=== PATIENT | female | born 1985 | race Caucasian/White ===

== ENCOUNTER 2016-06-20 21:32 | Emergency (ER) | payer MEDICAID ==
[~2016-06-20] VITALS: Ht 165.1 cm; Wt 58.1 kg
[2016-06-20 21:35] VITALS: BP_SYST 120
[2016-06-20] MEDS ORDERED: SULFAMETHOXAZOLE/TRIMETHOPR DS 1 TABLET PO ONE (23:30)
[2016-06-20 23:58] VITALS: BP_SYST 126
== END 2016-06-20 23:58 | disposition home or self-care (01) ==
LOC: SED 21:32
DX: J02.9 Acute pharyngitis, unspecified (principal); J01.90 Acute sinusitis, unspecified; J45.909 Unspecified asthma, uncomplicated; Z88.6 Allergy status to analgesic agent
CPT/HCPCS: 81025; 99283

== ENCOUNTER 2017-11-21 09:19 | Emergency (ER) | payer MEDICAID ==
[~2017-11-21] VITALS: Ht 154.9 cm; Wt 63.5 kg
[2017-11-21 09:20] VITALS: BP_SYST 117
[2017-11-21 09:46] LABS: BASOPHILS % (AUTO) 0.8 % (0.0-2.0); EOSINOPHILS # (AUTO) 0.1 K/uL (0.0-0.4); HEMATOCRIT 41.8 % (36-48); HEMOGLOBIN 13.4 g/dL (12.0-16.0); LYMPHOCYTES # (AUTO) 3.5 K/uL (1.0-5.5); LYMPHOCYTES % (AUTO) 56.4 % (20.5-51.5); MEAN CORPUSCULAR HEMOGLOBIN 28 pg (27-31); MEAN CORPUSCULAR HGB CONC 32 % (32-36); MEAN CORPUSCULAR VOLUME 88 fL (79.0-98.0); MONOCYTES # (AUTO) 0.4 K/uL (0.0-1.0); MONOCYTES % (AUTO) 6.1 % (1.7-9.3); NEUTROPHILS # (AUTO) 2.2 K/uL (1.8-7.7); NEUTROPHILS % (AUTO) 35.7 % (40.0-70.0); PLATELET COUNT (AUTO) 315 K/uL (130-430); RED BLOOD CELL COUNT(AUTO) 4.77 MIL/uL (4.2-6.2); RED CELL DISTRIBUTION WIDTH 12.5 % (9.0-15.0); WHITE BLOOD COUNT (AUTO) 6.2 K/uL (4.8-10.8)
[2017-11-21 10:05] LABS: PROTHROMBIN TIME 10.2 SECS (9.5-12.5)
[2017-11-21 10:13] LABS: ANION GAP 8 (5-15); CALCIUM 9.1 mg/dL (8.4-11.0); CHLORIDE 103 mmol/L (98-107); CREATININE 0.66 mg/dL (0.55-1.30); GFR AFRICAN AMERICAN 135 mL/min (>90); GLUCOSE 77 mg/dL (70-99); SODIUM SERUM 137 mmol/L (136-145); UREA NITROGEN, BLOOD 8 mg/dL (8-21)
[2017-11-21 10:26] LABS: ALANINE AMINOTRANSFERASE 24 U/L (12-78); ALBUMIN 3.7 g/dL (3.4-4.8); ASPARTATE AMINOTRANSFERASE 18 U/L (10-37); TOTAL BILIRUBIN 0.9 mg/dL (0.0-1.0); URIC ACID 3.2 mg/dL (2.4-7.0)
[2017-11-21 11:11] VITALS: BP_SYST 117
[2017-11-21 15:03] LABS: C-REACTIVE PROTEIN QUANT < 0.2 mg/dL (0-0.5)
== END 2017-11-21 11:07 | disposition home or self-care (01) ==
LOC: SED 09:19
DX: M13.862 Other specified arthritis, left knee (principal); M13.861 Other specified arthritis, right knee; J45.909 Unspecified asthma, uncomplicated; Z88.6 Allergy status to analgesic agent
CPT/HCPCS: 36415; 73560-TC; 80053; 81025; 84550-TC; 85025; 85610-TC; 85730-TC; 86140; 99285

== ENCOUNTER 2018-01-16 20:34 | Emergency (ER) | payer MEDICAID ==
[~2018-01-16] VITALS: Ht 165.1 cm; Wt 63.5 kg
[2018-01-16 20:38] VITALS: BP_SYST 152
[2018-01-16] MEDS ORDERED: methylPREDNISolone SOD SUCC/PF 62.5 MG/ML VIAL IM ONE (21:00)
[2018-01-16] MEDS ORDERED: IPRATROPIUM/ALBUTEROL SULFATE 3 ML AMPUL.NEB (DUONEB) INH ONE (21:00)
== END 2018-01-16 21:37 | disposition home or self-care (01) ==
LOC: SED 20:34
DX: J45.901 Unspecified asthma with (acute) exacerbation (principal); F41.9 Anxiety disorder, unspecified; R03.0 Elevated blood-pressure reading, without diagnosis of hypertension; Z88.6 Allergy status to analgesic agent
CPT/HCPCS: 94640; 96372; 99283; J2930

== ENCOUNTER 2018-11-30 09:19 | Emergency (ER) | payer MEDICAID ==
[~2018-11-30] VITALS: Ht 154.9 cm; Wt 59.0 kg
[2018-11-30 09:38] VITALS: BP_SYST 112
--- NOTE | 2018-11-30 09:45 | NUR ---
Patient to ER bed 3 to gown for evaluation. Side rails up. Report given to Tatiana ZARATE.
--- NOTE | 2018-11-30 09:50 | NUR ---
Patient presented to ER with C/O Rash. Patient A&Ox4, afebrile, cap refill <3, skin hives on bilat arms, bilat legs, and trunk. Patient states she has had rash x3 days with increase in itchiness today. patient states she has new dog 3 days ago.
--- NOTE | 2018-11-30 09:52 | NUR ---
ER Dr. Yeung at bedside examining patient.
[2018-11-30] MEDS ORDERED: EPINEPHrine JECT 1 MG/10 ML SYR IM ONE (10:00)
[2018-11-30] MEDS ORDERED: PREDNISONE 20 MG TABLET PO ONE (10:00)
[2018-11-30] MEDS ORDERED: DIPHENHYDRAMINE HCL 50 MG CAPSULE PO ONE (10:00)
[2018-11-30] MEDS ORDERED: EPINEPHrine 1 MG/ML AMP IM ONE (10:00)
[2018-11-30 10:48] LABS: BASOPHILS % (AUTO) 0.4 % (0.0-2.0); EOSINOPHILS # (AUTO) 0.1 K/uL (0.0-0.4); EOSINOPHILS % (AUTO) 0.9 % (0.0-4.0); HEMATOCRIT 45.1 % (36-48); HEMOGLOBIN 15.1 g/dL (12.0-16.0); LYMPHOCYTES # (AUTO) 3.9 K/uL (1.0-5.5); LYMPHOCYTES % (AUTO) 49.6 % (20.5-51.5); MEAN CORPUSCULAR HEMOGLOBIN 30 pg (27-31); MEAN CORPUSCULAR HGB CONC 34 % (32-36); MEAN CORPUSCULAR VOLUME 89 fL (79.0-98.0); MONOCYTES # (AUTO) 0.6 K/uL (0.0-1.0); MONOCYTES % (AUTO) 7.5 % (1.7-9.3); NEUTROPHILS # (AUTO) 3.3 K/uL (1.8-7.7); NEUTROPHILS % (AUTO) 41.6 % (40.0-70.0); PLATELET COUNT (AUTO) 289 K/uL (130-430); RED BLOOD CELL COUNT(AUTO) 5.08 MIL/uL (4.2-6.2); RED CELL DISTRIBUTION WIDTH 13.6 % (9.0-15.0); WHITE BLOOD COUNT (AUTO) 7.9 K/uL (4.8-10.8)
[2018-11-30 10:58] LABS: CREATININE 0.69 mg/dL (0.55-1.30); POTASSIUM 3.5 mmol/L (3.5-5.1)
[2018-11-30 11:03] LABS: PROTHROMBIN TIME 10.4 SECS (9.5-12.5)
[2018-11-30 12:40] VITALS: BP_SYST 114
--- NOTE | 2018-11-30 12:40 | NUR ---
Patient given written and verbal discharge instructions and verbalizes understanding. ER MD discussed with patient the results and treatment provided. Patient in stable condition. ID arm band removed. Rx of Benadryl & epi auto injecter given. Patient educated on pain management and to follow up with PMD. Pain Scale 0/10. Opportunity for questions provided and answered. Medication side effect fact sheet provided.
== END 2018-11-30 12:40 | disposition home or self-care (01) ==
LOC: SED 09:19
DX: L23.9 Allergic contact dermatitis, unspecified cause (principal); J45.909 Unspecified asthma, uncomplicated; Z88.6 Allergy status to analgesic agent
CPT/HCPCS: 36415; 80053; 85025; 85610; 85730; 96372; 99283; J0171; J7512; Q0163

== ENCOUNTER 2019-02-21 00:52 | Emergency (ER) | payer MEDICAID ==
[~2019-02-21] VITALS: Ht 157.5 cm; Wt 59.0 kg
[2019-02-21 01:09] VITALS: BP_SYST 118
--- NOTE | 2019-02-21 01:15 | NUR ---
Patient triaged and placed in waiting room. VSS and patient appears in no acute distress at this time. Awaiting available bed, and MD notified of need for MSE.
--- NOTE | 2019-02-21 02:10 | NUR ---
Pt ambulatory to bed 2 for evaluation
--- NOTE | 2019-02-21 02:44 | NUR ---
Patient was ambulatory to ER bed, c/o left sided abdominal pain x 2 weeks. Pt denies N/V, fever, constipation or diarrhea. Per patient Tylenol has been taken but has not relieved pain. No other injuries/complaints per patient or noted.
--- NOTE | 2019-02-21 02:45 | NUR ---
ER Dr. Devlin at bedside examining patient.
--- NOTE | 2019-02-21 03:11 | NUR ---
Patient went to CT in stable condition.
--- NOTE | 2019-02-21 03:22 | NUR ---
patient returned from CT in stable condition.
[2019-02-21 04:57] VITALS: BP_SYST 114
--- NOTE | 2019-02-21 04:57 | NUR ---
Patient given written and verbal discharge instructions and verbalizes understanding. ER MD discussed with patient the results and treatment provided. Patient in stable condition. Patient wanted to keep ID arm band. Rx of Mineral Oil given. Patient educated on pain management and to follow up with PMD. Pain Scale 0. Opportunity for questions provided and answered. Medication side effect fact sheet provided.
== END 2019-02-21 04:57 | disposition home or self-care (01) ==
LOC: SED 00:52
DX: R10.9 Unspecified abdominal pain (principal); J45.909 Unspecified asthma, uncomplicated
CPT/HCPCS: 99284

== ENCOUNTER 2020-02-19 10:56 | Emergency (ER) | payer MEDICAID ==
[~2020-02-19] VITALS: Ht 154.9 cm; Wt 63.5 kg
[2020-02-19 11:05] VITALS: BP_SYST 125
--- NOTE | 2020-02-19 11:05 | NUR ---
BROUGHT INTO TRIAGE TENT AND TRIAGED. AWAITING AVAILABLE ER ROOM
--- NOTE | 2020-02-19 11:21 | NUR ---
DR GONZALES OUT TO TENT FOR EVALUATION
--- NOTE | 2020-02-19 12:11 | NUR ---
PT SWABBED FOR COVID
--- NOTE | 2020-02-19 12:49 | NUR ---
Patient given written and verbal discharge instructions and verbalizes understanding. ER MD discussed with patient the results and treatment provided. Patient in stable condition. ID arm band removed. Rx of NONE given. Patient educated on pain management and to follow up with PMD. Pain Scale 0/10. Opportunity for questions provided and answered. Medication side effect fact sheet provided.
== END 2020-02-19 12:49 | disposition home or self-care (01) ==
LOC: SED 10:56
DX: B34.9 Viral infection, unspecified (principal); R05 Cough; J02.9 Acute pharyngitis, unspecified; J45.909 Unspecified asthma, uncomplicated; Z20.828 Contact with and (suspected) exposure to other viral communicable diseases
CPT/HCPCS: 99281

== ENCOUNTER 2020-10-24 08:03 | Emergency (ER) | payer MEDICAID, SELFPAY ==
[~2020-10-24] VITALS: Ht 160 cm; Wt 63.5 kg
--- NOTE | 2020-10-24 08:30 | NUR ---
Patient to ER bed 4 to gown for evaluation. Side rails up. .
--- NOTE | 2020-10-24 08:31 | NUR ---
ER at bedside examining patient.
--- NOTE | 2020-10-24 08:35 | NUR ---
PT RECEIVED WOUND CARE AND ROCEPHIN GIVEN.PT TOLERATED WELL.
[2020-10-24] MEDS ORDERED: TRAM50TA PO (08:39)
[2020-10-24] MEDS ORDERED: CEPH500C2 PO (08:39)
[2020-10-24 08:40] VITALS: BP_SYST 134
--- NOTE | 2020-10-24 08:40 | NUR ---
Patient given written and verbal discharge instructions and verbalizes understanding. ER MD discussed with patient the results and treatment provided. Patient in stable condition. ID arm band removed. Rx of CEFALEXIN, TRAMADOL given. Patient educated on pain management and to follow up with PMD. Pain Scale 2. Opportunity for questions provided and answered. Medication side effect fact sheet provided.
[2020-10-24] MEDS ORDERED: cefTRIAXone 1 GM VIAL IM ONE (08:45)
[2020-10-24] MEDS ORDERED: LIDOCAINE 1%, 20 ML MDV 20 ML ONE (08:53)
== END 2020-10-24 08:40 | disposition home or self-care (01) ==
LOC: SED 08:03
DX: L03.012 Cellulitis of left finger (principal); J45.909 Unspecified asthma, uncomplicated; Z88.6 Allergy status to analgesic agent; Z79.899 Other long term (current) drug therapy
CPT/HCPCS: 96372; 99283; J0696; J2001

== ENCOUNTER 2020-11-20 08:05 | Emergency (ER) | payer MEDICAID, SELFPAY ==
[~2020-11-20] VITALS: Ht 154.9 cm; Wt 61.7 kg
[~2020-11-20 08:05] MED LIST: CEPH500C2 PO; TRAM50TA PO
[2020-11-20 08:15] VITALS: BP_SYST 134
[2020-11-20 08:51] LABS: BASOPHILS % (AUTO) 0.4 % (0.0-2.0); EOSINOPHILS # (AUTO) 0.1 K/uL (0.0-0.4); EOSINOPHILS % (AUTO) 0.6 % (0.0-4.0); HEMATOCRIT 41.2 % (36-48); LYMPHOCYTES # (AUTO) 3.6 K/uL (1.0-5.5); LYMPHOCYTES % (AUTO) 41.7 % (20.5-51.5); MEAN CORPUSCULAR HEMOGLOBIN 31 pg (27-31); MEAN CORPUSCULAR HGB CONC 34 % (32-36); MEAN CORPUSCULAR VOLUME 90 fL (79.0-98.0); MONOCYTES # (AUTO) 0.6 K/uL (0.0-1.0); MONOCYTES % (AUTO) 7.6 % (1.7-9.3); NEUTROPHILS # (AUTO) 4.3 K/uL (1.8-7.7); NEUTROPHILS % (AUTO) 49.7 % (40.0-70.0); PLATELET COUNT (AUTO) 267 K/uL (130-430); RED BLOOD CELL COUNT(AUTO) 4.59 MIL/uL (4.2-6.2); RED CELL DISTRIBUTION WIDTH 13.5 % (9.0-15.0); WHITE BLOOD COUNT (AUTO) 8.6 K/uL (4.8-10.8)
[2020-11-20 09:04] LABS: ANION GAP 7 (5-15); CALCIUM 9.2 mg/dL (8.4-11.0); CHLORIDE 101 mmol/L (98-107); CREATININE 0.64 mg/dL (0.55-1.30); GLUCOSE 80 mg/dL (70-99); POTASSIUM 4.4 mmol/L (3.5-5.1); SODIUM SERUM 138 mmol/L (136-145); UREA NITROGEN, BLOOD 11 mg/dL (8-21)
[2020-11-20 09:06] LABS: GFR AFRICAN AMERICAN 137 mL/min (>90)
[2020-11-20 09:12] LABS: INR 0.9 (0.8-1.2); PROTHROMBIN TIME 9.9 SECS (9.5-12.5)
[2020-11-20 09:19] LABS: ALANINE AMINOTRANSFERASE 26 U/L (12-78); ALBUMIN 3.7 g/dL (3.4-4.8); ASPARTATE AMINOTRANSFERASE 11 U/L (10-37); TOTAL BILIRUBIN 0.9 mg/dL (0.0-1.0)
[2020-11-20 09:28] LABS: C-REACTIVE PROTEIN QUANT < 0.2 mg/dL (0-0.5)
[2020-11-20] MEDS ORDERED: IBUP-1969 PO (09:40)
[2020-11-20 09:46] VITALS: BP_SYST 134
== END 2020-11-20 09:48 | disposition home or self-care (01) ==
LOC: SED 08:05
DX: S50.11XA Contusion of right forearm, initial encounter (principal); J45.909 Unspecified asthma, uncomplicated; Z88.6 Allergy status to analgesic agent; Z79.899 Other long term (current) drug therapy; W22.8XXA Striking against or struck by other objects, initial encounter; Y93.89 Activity, other specified; Y92.89 Other specified places as the place of occurrence of the external cause; Y99.8 Other external cause status
CPT/HCPCS: 36415; 73090; 80053; 83605; 85025; 85610-TC; 85730-TC; 86140; 99284

== ENCOUNTER 2021-01-11 15:16 | Emergency (ER) | payer MEDICAID ==
[~2021-01-11] VITALS: Ht 154.9 cm; Wt 61.7 kg
[~2021-01-11 15:16] MED LIST changes: +CEPH-548 PO; -CEPH500C2 PO; +IBUP-1969 PO
[2021-01-11 15:27] VITALS: BP_SYST 140
--- NOTE | 2021-01-11 15:27 | NUR ---
Patient to ER bed 5 for evaluation. Side rails up. Assumed care.
--- NOTE | 2021-01-11 15:30 | NUR ---
pt. bib aunt with c/o 11/26 pain after stubbing front of foot last night, states hit front of foot but pain is in the heel and it radiates up leg, no swelling or bruising noted
--- NOTE | 2021-01-11 15:32 | NUR ---
ETTA Grewal at bedside examining patient.
[2021-01-11] MEDS ORDERED: ACETAMINOPHEN 500 MG TABLET PO ONE (15:45)
[2021-01-11 16:13] VITALS: BP_SYST 140
--- NOTE | 2021-01-11 16:14 | NUR ---
Patient given written and verbal discharge instructions and verbalizes understanding. ER Dr. Brooks discussed with patient the results and treatment provided. Patient in stable condition. ID arm band removed. Patient educated on pain management and to follow up with PMD. Pain Scale 5. Opportunity for questions provided and answered. Medication side effect fact sheet provided.
== END 2021-01-11 16:14 | disposition home or self-care (01) ==
LOC: SED 15:16
DX: S86.111A Strain of other muscle(s) and tendon(s) of posterior muscle group at lower leg level, right leg, initial encounter (principal); J45.909 Unspecified asthma, uncomplicated; Z88.6 Allergy status to analgesic agent; Z79.899 Other long term (current) drug therapy; X50.0XXA Overexertion from strenuous movement or load, initial encounter; Y93.89 Activity, other specified; Y92.89 Other specified places as the place of occurrence of the external cause; Y99.8 Other external cause status
CPT/HCPCS: 99282

== ENCOUNTER 2021-04-17 09:37 | Emergency (ER) | payer MEDICAID ==
[~2021-04-17] VITALS: Ht 154.9 cm; Wt 64.4 kg
[2021-04-17 10:18] VITALS: BP_SYST 139
--- NOTE | 2021-04-17 10:18 | NUR ---
Patient to ER bed 8 to gown for evaluation. Side rails up. Report given to MAGDY ZARATE.
--- NOTE | 2021-04-17 10:27 | NUR ---
ER at bedside examining patient.
[2021-04-17] MEDS ORDERED: MECLIZINE HCL 25 MG TABLET (ANITVERT) PO ONE (10:30)
--- NOTE | 2021-04-17 10:32 | NUR ---
pt. here c/o dizziness X 9 days, post covid booster, states room spinning not her, accompanied by N/V
--- NOTE | 2021-04-17 10:38 | NUR ---
lab at bedside
[2021-04-17 10:47] LABS: BASOPHILS % (AUTO) 0.4 % (0.0-2.0); EOSINOPHILS % (AUTO) 0.6 % (0.0-4.0); HEMATOCRIT 43.1 % (36-48); HEMOGLOBIN 14.4 g/dL (12.0-16.0); LYMPHOCYTES # (AUTO) 2.9 K/uL (1.0-5.5); LYMPHOCYTES % (AUTO) 48.5 % (20.5-51.5); MEAN CORPUSCULAR HEMOGLOBIN 29 pg (27-31); MEAN CORPUSCULAR HGB CONC 34 % (32-36); MEAN CORPUSCULAR VOLUME 87 fL (79.0-98.0); MONOCYTES # (AUTO) 0.8 K/uL (0.0-1.0); MONOCYTES % (AUTO) 13.4 % (1.7-9.3); NEUTROPHILS # (AUTO) 2.2 K/uL (1.8-7.7); NEUTROPHILS % (AUTO) 37.1 % (40.0-70.0); PLATELET COUNT (AUTO) 278 K/uL (130-430); RED BLOOD CELL COUNT(AUTO) 4.97 MIL/uL (4.2-6.2); RED CELL DISTRIBUTION WIDTH 12.9 % (9.0-15.0)
[2021-04-17 11:05] LABS: CALCIUM 8.5 mg/dL (8.4-11.0); CREATININE 0.55 mg/dL (0.55-1.30); POTASSIUM 4.3 mmol/L (3.5-5.1)
[2021-04-17 11:10] LABS: TOTAL BILIRUBIN 0.7 mg/dL (0.0-1.0)
[2021-04-17] MEDS ORDERED: ONDA-8 TL (11:43)
[2021-04-17] MEDS ORDERED: MECL-160 PO (11:43)
[2021-04-17 11:49] VITALS: BP_SYST 139
--- NOTE | 2021-04-17 11:51 | NUR ---
Patient given written and verbal discharge instructions and verbalizes understanding. ER MD discussed with patient the results and treatment provided. Patient in stable condition. ID arm band removed. Rx of Meclizine and Zofran given. Patient educated on pain management and to follow up with PMD. Pain Scale 2/10. Opportunity for questions provided and answered. Medication side effect fact sheet provided.
== END 2021-04-17 11:49 | disposition home or self-care (01) ==
LOC: SED 09:37
DX: H81.10 Benign paroxysmal vertigo, unspecified ear (principal); J45.909 Unspecified asthma, uncomplicated; Z88.8 Allergy status to other drugs, medicaments and biological substances; Z79.899 Other long term (current) drug therapy
CPT/HCPCS: 36415; 70450; 80053; 85025; 99284; J8597

== ENCOUNTER 2022-12-04 11:09 | Emergency (ER) | payer MEDICAID ==
[~2022-12-04] VITALS: Ht 160 cm; Wt 65.8 kg
[~2022-12-04 11:09] MED LIST changes: +MECL-292 PO; +ONDA-8 TL
[2022-12-04 11:21] VITALS: BP_SYST 128; PULSE 74; RESP 20; TEMP 98; O2SAT 98
[2022-12-04 11:51] LABS: BASOPHILS % (AUTO) 0.5 % (0.0-2.0); EOSINOPHILS # (AUTO) 0.1 K/uL (0.0-0.4); HEMATOCRIT 42.8 % (36-48); LYMPHOCYTES # (AUTO) 3.4 K/uL (1.0-5.5); LYMPHOCYTES % (AUTO) 49.4 % (20.5-51.5); MEAN CORPUSCULAR HEMOGLOBIN 29 pg (27-31); MEAN CORPUSCULAR HGB CONC 33 % (32-36); MEAN CORPUSCULAR VOLUME 89 fL (79.0-98.0); MONOCYTES # (AUTO) 0.5 K/uL (0.0-1.0); MONOCYTES % (AUTO) 7.4 % (1.7-9.3); NEUTROPHILS # (AUTO) 2.9 K/uL (1.8-7.7); NEUTROPHILS % (AUTO) 41.7 % (40.0-70.0); PLATELET COUNT (AUTO) 296 K/uL (130-430); RED CELL DISTRIBUTION WIDTH 13.5 % (9.0-15.0); WHITE BLOOD COUNT (AUTO) 6.8 K/uL (4.8-10.8)
[2022-12-04 12:09] LABS: SERUM HCG (QUALITATIVE) NEGATIVE (NEGATIVE)
[2022-12-04 12:17] LABS: BILIRUBIN,URINE NEGATIVE (NEGATIVE); BLOOD, URINE NEGATIVE (NEGATIVE); CLARITY/URINE CLEAR (CLEAR); COLOR,URINE YELLOW (YELLOW); GLUCOSE,URINE NEGATIVE (NEGATIVE); KETONES,URINE NEGATIVE (NEGATIVE); LEUKOCYTE ESTERASE ,URINE NEGATIVE (NEGATIVE); NITRITE, URINE NEGATIVE (NEGATIVE); PH,URINE 6.5 (5.0-8.0); PROTEIN URINE NEGATIVE (NEGATIVE); UROBILINOGEN,URINE 0.2 (0.2-1.0)
[2022-12-04 12:20] LABS: CALCIUM 9.6 mg/dL (8.4-11.0); CREATININE 0.67 mg/dL (0.55-1.30)
[2022-12-04 12:32] LABS: ALBUMIN 3.9 g/dL (3.4-4.8); TOTAL BILIRUBIN 0.7 mg/dL (0.0-1.0); TOTAL PROTEIN, SERUM 8.6 g/dL (6.4-8.3)
[2022-12-04] MEDS ORDERED: OMEP20CA15 PO (12:37)
[2022-12-04 13:09] VITALS: BP_SYST 132; PULSE 76; RESP 16; TEMP 97.6; O2SAT 98
== END 2022-12-04 13:06 | disposition home or self-care (01) ==
LOC: SED 11:09
DX: K29.70 Gastritis, unspecified, without bleeding (principal); R10.13 Epigastric pain; R11.2 Nausea with vomiting, unspecified; J45.909 Unspecified asthma, uncomplicated; Z88.6 Allergy status to analgesic agent; Z79.899 Other long term (current) drug therapy
CPT/HCPCS: 36415; 76705; 80053; 81001; 81003; 81025; 82150; 83605; 83690; 84703; 85025; 99284

== ENCOUNTER 2023-02-19 10:31 | Emergency (ER) | payer MEDICAID ==
[~2023-02-19] VITALS: Ht 157.5 cm; Wt 68.0 kg
[~2023-02-19 10:31] MED LIST changes: +OMEP20CA15 PO
[2023-02-19 10:32] VITALS: BP_SYST 130; PULSE 60; RESP 20; TEMP 98.2; O2SAT 100
[2023-02-19] MEDS ORDERED: HYDROcodone/ACETAMIN 10-325 MG TAB PO ONE (11:15)
[2023-02-19] MEDS ORDERED: LIDOCAINE 2% JELLY UROJECT 10 ML MM ONE (11:23)
[2023-02-19] MEDS ORDERED: BACITRACIN 1 GM OINT TP ONE (11:23)
[2023-02-19] MEDS ORDERED: traMADol HCL HCL 50 MG TABLET (ULTRAM) PO ONE (11:30)
[2023-02-19] MEDS ORDERED: TRAM50TA2 PO (11:33)
== END 2023-02-19 11:49 | disposition home or self-care (01) ==
LOC: SED 10:31
DX: T22.211A Burn of second degree of right forearm, initial encounter (principal); J45.909 Unspecified asthma, uncomplicated; Z88.6 Allergy status to analgesic agent; Z79.899 Other long term (current) drug therapy; X11.0XXA Contact with hot water in bath or tub, initial encounter; Y93.89 Activity, other specified; Y92.89 Other specified places as the place of occurrence of the external cause; Y99.8 Other external cause status
CPT/HCPCS: 99283

== ENCOUNTER 2023-05-12 11:51 | Emergency (ER) | payer MEDICAID ==
[~2023-05-12] VITALS: Ht 154.9 cm; Wt 68.0 kg
[~2023-05-12 11:51] MED LIST changes: +TRAM50TA2 PO
[2023-05-12 12:09] VITALS: BP_SYST 124; PULSE 68; RESP 16; TEMP 98.1; O2SAT 99
[2023-05-12] MEDS: DIPHENHYDRAMINE INJ 50 MG/ML VIAL IM ONE (12:36)
[2023-05-12] MEDS: predniSONE 20 MG TABLET PO ONE (12:37)
[2023-05-12] MEDS: ONDANSETRON 4 MG ODT TAB PO ONE (12:43)
[2023-05-12] MEDS ORDERED: BEN50 PO (13:47)
[2023-05-12] MEDS ORDERED: PRED50TA PO (13:47)
[2023-05-12 14:45] VITALS: BP_SYST 115; PULSE 70; RESP 16; TEMP 98.5; O2SAT 99
== END 2023-05-12 14:43 | disposition home or self-care (01) ==
LOC: SED 11:51
DX: R21 Rash and other nonspecific skin eruption (principal); T39.315A Adverse effect of propionic acid derivatives, initial encounter; J45.909 Unspecified asthma, uncomplicated; Z88.6 Allergy status to analgesic agent; Z79.899 Other long term (current) drug therapy; Y92.89 Other specified places as the place of occurrence of the external cause
CPT/HCPCS: 99283; 96372; Q0162; J7512; J1200

== ENCOUNTER 2023-10-27 16:24 | Emergency (ER) | payer MEDICAID ==
[~2023-10-27] VITALS: Ht 154.9 cm; Wt 68.0 kg
[~2023-10-27 16:24] MED LIST changes: +BEN50 PO; +PRED50TA PO
[2023-10-27 16:48] VITALS: BP_SYST 160; PULSE 86; RESP 18; TEMP 98.5; O2SAT 94
[2023-10-27 19:43] LABS: BASOPHILS % (AUTO) 0.4 % (0.0-2.0); EOSINOPHILS # (AUTO) 0.1 K/uL (0.0-0.4); EOSINOPHILS % (AUTO) 0.7 % (0.0-4.0); HEMOGLOBIN 13.6 g/dL (12.0-16.0); LYMPHOCYTES # (AUTO) 4.2 K/uL (1.0-5.5); MEAN CORPUSCULAR HEMOGLOBIN 29 pg (27-31); MEAN CORPUSCULAR HGB CONC 34 % (32-36); MEAN CORPUSCULAR VOLUME 86 fL (79.0-98.0); MONOCYTES # (AUTO) 0.6 K/uL (0.0-1.0); NEUTROPHILS # (AUTO) 3.9 K/uL (1.8-7.7); NEUTROPHILS % (AUTO) 43.9 % (40.0-70.0); PLATELET COUNT (AUTO) 321 K/uL (130-430); RED BLOOD CELL COUNT(AUTO) 4.63 MIL/uL (4.2-6.2); RED CELL DISTRIBUTION WIDTH 13.4 % (9.0-15.0); WHITE BLOOD COUNT (AUTO) 8.8 K/uL (4.8-10.8)
[2023-10-27 19:55] LABS: ALBUMIN 3.7 g/dL (3.4-4.8); BILIRUBIN,DIRECT 0.1 mg/dL (0.0-0.3); CALCIUM 9.3 mg/dL (8.4-11.0); CREATININE 0.79 mg/dL (0.55-1.30); POTASSIUM 3.6 mmol/L (3.5-5.1); TOTAL BILIRUBIN 0.5 mg/dL (0.0-1.0); TOTAL PROTEIN, SERUM 8.5 g/dL (6.4-8.3)
[2023-10-27] MEDS ORDERED: OMEP40CA20 PO (21:15)
[2023-10-27 21:24] VITALS: BP_SYST 150; PULSE 84; RESP 18; TEMP 98.5; O2SAT 95
== END 2023-10-27 21:24 | disposition home or self-care (01) ==
LOC: SED 16:24
DX: K29.00 Acute gastritis without bleeding (principal); R10.13 Epigastric pain; J45.909 Unspecified asthma, uncomplicated; Z88.6 Allergy status to analgesic agent; Z79.899 Other long term (current) drug therapy; Z79.2 Long term (current) use of antibiotics
CPT/HCPCS: 36415; 80048; 80076; 81025; 83690; 85025; 99283